=== PATIENT | female | born 1985 | race Asian ===

== ENCOUNTER → 2016-05-15 | Outpatient (CLI) | payer BC ==
[~2016-05-15] MED LIST: GADAVIST IV PRN; NEOMOIN2 TOP
--- NOTE | 2016-05-15 11:57 | DIAGNOSTIC IMAGING REPORT ---
MRI THE BRAIN AND PITUITARY WITHOUT AND WITH GADOLINIUM CLINICAL HISTORY: A menorrhea, abnormal weight loss, fatigue. COMPARISON STUDY: No previous studies for comparison. FINDINGS: Imaging was performed before and after the administration of 5.5 cc of intravenous Gadavist. No intra or extra-axial mass lesions are visualized. Axial diffusion-weighted images reveal no evidence of acute or subacute infarction. The ventricular system has a normal size and configuration for age. Proton density, T2, and FLAIR images reveal no significant intraparenchymal signal abnormalities. Thin section imaging was obtained through the pituitary. The gland is of normal size. The optic chiasm appears normal. No infundibular abnormalities are visualized. The gland enhances in a uniform fashion. A 4 mm irregular focus of diminished enhancement within the left posterior lateral aspect of the gland is felt to represent partial volume averaging artifact. [Postcontrast images reveal no pathologically enhancing lesions. IMPRESSION: Normal MRI the brain and pituitary. Electronically signed by: Ron Mcmullen M.D. 05/15/2016 11:55 AM Dictated Date/Time: 05/15/2016 11:48 AM
== END | disposition home or self-care (01) ==
LOC: C.MRI 09:38
PROVIDERS: ATTEND Internal Medicine Endocrinology, Diabetes & Metabolism
DX: N91.1 Secondary amenorrhea (principal); R53.83 Other fatigue; R63.4 Abnormal weight loss

== ENCOUNTER → 2016-08-15 | Outpatient (CLI) | payer BC ==
[~2016-08-15] MED LIST changes: -GADAVIST IV PRN; -NEOMOIN2 TOP; +NEOMOIN3 TOP
[2016-08-15 16:17] LABS: THYROID STIMULATING HORMONE 0.138 uIu/ml (0.300-4.500)
== END | disposition home or self-care (01) ==
LOC: C.LAB1850 14:55
PROVIDERS: ATTEND Internal Medicine Endocrinology, Diabetes & Metabolism
DX: E03.8 Other specified hypothyroidism (principal); N91.1 Secondary amenorrhea; E55.9 Vitamin D deficiency, unspecified